=== PATIENT | female | born 1975 | race Caucasian/White ===

== ENCOUNTER 2017-12-18 21:40 | Emergency (ER) | payer OTHER ==
[2017-12-18 21:50] VITALS: RESP 16; TEMP 98.1; O2SAT 94
[2017-12-18] MEDS ORDERED: AMOXIL/CLAVULANATE 400/5 ML PDR PO ONE (22:09)
[2017-12-18] MEDS ORDERED: TRAMADOL HYDROCHLORIDE 50 MG TAB PO ONE (22:12)
[2017-12-18] MEDS ORDERED: AMOXIL/CLAVULANATE 400/5 ML PDR ONE (22:14)
[2017-12-18] MEDS ORDERED: TRAMADOL HYDROCHLORIDE 50 MG TAB ONE (22:14)
[2017-12-18 22:39] VITALS: BP 148/94; PULSE 94
== END 2017-12-18 22:33 | disposition home or self-care (01) | DRG 159 ==
LOC: ED 21:40
DX: K04.7 Periapical abscess without sinus (principal)
CPT/HCPCS: 99282; 99283; A9270-GY